=== PATIENT | female | born 1930 | race Caucasian/White ===

== ENCOUNTER 2018-11-30 09:19 | Emergency (ER) | payer MEDICARE, OTHER ==
--- NOTE | 2018-11-30 10:02 | EDM.PDOC ---
ED HPI GENERAL MEDICAL PROBLEM - General Chief Complaint: Lower Extremity Injury/Pain Stated Complaint: LEG PAIN Time Seen by Provider: 11/30/18 09:59 Source of Information: Reports: Patient History Limitations: Reports: No Limitations - History of Present Illness INITIAL COMMENTS - FREE TEXT/NARRATIVE: Presents with with right lower leg pain since this morning, denies injury. No prior h/o DVT. Onset: Today Location: Reports: Lower Extremity, Right Quality: Reports: Dull Severity: Moderate - Related Data Allergies Allergy/AdvReac Type Severity Reaction Status Date / Time No Known Allergies Allergy Verified 11/30/18 10:03 Home Meds: Home Meds Aspirin [Lo-Dose Aspirin EC] 81 mg PO DAILY 11/30/18 [History] Losartan [Cozaar] 25 mg PO DAILY 11/30/18 [History] Metoprolol Tartrate 25 mg PO BID 11/30/18 [History] atorvaSTATin [Lipitor] 40 mg PO BEDTIME 11/30/18 [History] Past Medical History Cardiovascular History: Reports: High Cholesterol, Hypertension. Denies: Blood Clots/VTE/DVT Social & Family History - Tobacco Use Smoking Status *Q: Never Smoker Review of Systems - Review of Systems Review Of Systems: ROS reveals no pertinent complaints other than HPI. ED EXAM, GENERAL - Physical Exam Exam: See Below Exam Limited By: No Limitations General Appearance: Alert, WD/WN, No Apparent Distress Respiratory/Chest: No Respiratory Distress Cardiovascular: Other (1+ bilateral pitting pedal edema) Peripheral Pulses: 2+: Dorsalis Pedis (R) Extremities: Normal Range of Motion, Normal Capillary Refill, Other (right lower leg tenderness) Neurological: Alert, Normal Cognition, No Motor/Sensory Deficits Skin Exam: Warm, Dry, Intact, Normal Color, No Rash Course - Vital Signs Last Recorded V/S: Last Vital Signs Temp 37.1 C 11/30/18 09:25 Pulse 54 L 11/30/18 12:00 Resp 18 11/30/18 12:00 BP 151/83 H 11/30/18 12:00 Pulse Ox 99 11/30/18 12:00 - Orders/Labs/Meds Orders: Active Orders 24 hr Category Date Time Status Tibia Fibula Rt [CR] Stat Exams 11/30/18 11:45 Ordered VL Duplex Lwr Ext Veins Ltd Rt [US] Stat Exams 11/30/18 09:56 Ordered Labs: Laboratory Tests 11/30/18 11/30/18 11/30/18 Range/Units 10:10 10:10 10:10 WBC 4.2 L (4.5-12.0) X10-3/uL RBC 3.36 (3.23-5.20) x10(6)uL Hgb 10.3 L (11.5-15.5) g/dL Hct 30.8 (30.0-51.3) % MCV 91.7 (80-96) fL MCH 30.6 (27.7-33.6) pg MCHC 33.4 (32.2-35.4) g/dL RDW 14.1 (11.5-15.5) % Plt Count 270 (125-369) X10(3)uL MPV 6.4 L (7.4-10.4) fL Neut % (Auto) 59.1 (46-82) % Lymph % (Auto) 25.1 (13-37) % [place] % (Auto) 7.9 (4-12) % Eos % (Auto) 7 H (1.0-5.0) % Baso % (Auto) 1 (0-2) % Neut # (Auto) 2.4 (1.6-8.3) # Lymph # (Auto) 1.1 (0.6-5.0) # [place] # (Auto) 0.3 (0.0-1.3) # Eos # (Auto) 0.3 (0.0-0.8) # Baso # (Auto) 0.1 (0.0-0.2) # PT 9.3 (8.7-11.1) INR 0.96 (0.89-1.13) APTT 28.1 (24.4-33.2) SECONDS Sodium 132 L (135-145) mmol/L Potassium 4.5 (3.5-5.3) mmol/L Chloride 98 L (100-110) mmol/L Carbon Dioxide 28 (21-32) mmol/L BUN 21 H (7-18) mg/dL Creatinine 0.9 (0.55-1.02) mg/dL Est Cr Clr Drug Dosing 40.38 mL/min Estimated GFR (MDRD) 59 L (>60) BUN/Creatinine Ratio 23.3 H (9-20) Glucose 82 (80-116) mg/dL Calcium 9.0 (8.6-10.2) mg/dL - Radiology Interpretation Free Text/Narrative:: Right Tib-Fib XR: No acute abnormalities (ED provider interpretation). Right LE Venous US Doppler: No DVT (per US tech). - Re-Assessments/Exams Free Text/Narrative Re-Assessment/Exam: 11/30/18 12:14 Symptoms improved spontaneously. Departure - Departure Time of Disposition: 12:14 Disposition: Home, Self-Care 01 Condition: Good Clinical Impression: Musculoskeletal pain of right lower extremity - Discharge Information *PRESCRIPTION DRUG MONITORING PROGRAM REVIEWED*: No *COPY OF PRESCRIPTION DRUG MONITORING REPORT IN PATIENT DELMA: Not Applicable Instructions: Pain Without a Known Cause Referrals: PCP,Not In Area [Primary Care Provider] - Forms: ED Department Discharge Additional Instructions: Take Tylenol as needed for pain, elevate and rest. Follow up with your primary physician in 3-4 days if symptoms don't resolve. - My Orders Last 24 Hours: My Active Orders 11/30/18 09:56 VL Duplex Lwr Ext Veins Ltd Rt [US] Stat 11/30/18 11:45 Tibia Fibula Rt [CR] Stat - Assessment/Plan Last 24 Hours: My Active Orders 11/30/18 09:56 VL Duplex Lwr Ext Veins Ltd Rt [US] Stat 11/30/18 11:45 Tibia Fibula Rt [CR] Stat
--- NOTE | 2018-12-01 12:06 | CR ---
INDICATION: Pain. 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 No comparisons were available for this 11/30/18 study. A moderate sized plantar calcaneal spur is noted. A tiny posterior calcaneal spur is noted. No evidence of an acute fracture or dislocation was identified. [facility]
--- NOTE | 2018-12-01 12:09 | US ---
INDICATION: Right lower leg pain, question DVT. DUPLEX ULTRASOUND, RIGHT LOWER EXTREMITY VEINS: Utilizing 2-D real time, duplex Doppler spectral analysis and color flow imaging, examination of the right lower extremity veins, including the common femoral vein, proximal greater saphenous vein, proximal deep femoral vein, proximal femoral vein, mid femoral vein, distal femoral vein, popliteal vein, posterior tibial vein, anterior tibial vein, and peroneal vein, revealed no evidence of deep venous thrombosis or obstruction. Compression views showed no abnormal lack of compression to suggest thrombosis. The patient was unable to Valsalva adequately to evaluate the valve competence. IMPRESSION: Duplex ultrasound, lower extremity veins, shows no evidence of deep venous thrombosis. Unable to evaluate valvular competence. [facility]
== END 2018-11-30 12:25 | disposition home or self-care (01) ==
LOC: FB.ED 09:19
DX: M79.661 Pain in right lower leg (principal); E78.00 Pure hypercholesterolemia, unspecified; I10 Essential (primary) hypertension; Z79.82 Long term (current) use of aspirin; Z79.899 Other long term (current) drug therapy
CPT/HCPCS: 36415; 73590-RT; 80048; 85025; 85610; 85730; 93971-RT; 99283; 99284-25